=== PATIENT | male | born 1990 | race Caucasian/White ===

== ENCOUNTER 2020-02-25 18:36 | Emergency (ER) | payer SELFPAY ==
[~2020-02-25] VITALS: Ht 182.9 cm; Wt 74.1 kg
--- NOTE | 2020-02-25 19:53 | NUR ---
CALLED FOR ROOM, NO ANSWER.
--- NOTE | 2020-02-25 19:55 | NUR ---
PT FOUND, TO ROOM 20 AT THIS TIME.
--- NOTE | 2020-02-25 20:36 | NUR ---
PT C/O URINATING BLOOD INTERMITTENT X 2 WEEKS, "USUALLY IN THE MORNING". DENIES PAIN, BURNING, ITCHING, DYSURIA. SEXUALLY ACTIVE, PROTECTED. DENIES STD, TRAUMA.
[2020-02-25 20:39] VITALS: BP 140/96
--- NOTE | 2020-02-25 20:40 | NUR ---
PT AMBULATORY TO [facility] W/OUT INCIDENT; GAIT STEADY.
--- NOTE | 2020-02-25 20:59 | NUR ---
PT NOT IN ROOM; PERSONAL BELONGINGS NOT IN ROOM. URINE SPECIMEN ON COUNTER.
[2020-02-25 21:34] LABS: MICROSCOPIC INDICATED
--- NOTE | 2020-02-25 22:09 | NUR ---
PT CALLED PER DR YU, AWARE THAT THERE IS RX HERE AND TO COME PICK IT UP.
== END 2020-02-25 21:10 | disposition left against medical advice (07) ==
LOC: ED 20:23
DX: N30.00 Acute cystitis without hematuria (principal); R31.9 Hematuria, unspecified; F17.200 Nicotine dependence, unspecified, uncomplicated
CPT/HCPCS: 81001; 87086; 99283

== ENCOUNTER 2020-03-03 13:03 | Emergency (ER) | payer SELFPAY ==
[~2020-03-03] VITALS: Ht 198.1 cm; Wt 79.8 kg
--- NOTE | 2020-03-03 14:20 | NUR ---
PATIENT WALKED BACK FROM TRIAGE WITH CHIEF C/O BLOOD IN URINE X1 WEEK. PATIENT REPORTS PAINFUL URINATION X2 DAYS, PATIENT REPORTS HAVING CHILLS. PATIENT A&OX4, NO SIGNS OF ACUTE DISTRESS.
[2020-03-03 14:22] LABS: MEAN CORPUSCULAR HEMOGLOBIN 34.8 pg (27.5-34.5); MEAN CORPUSCULAR HGB CONC 33.6 g/dL (33.2-36.2); MEAN CORPUSCULAR VOLUME 103.5 fL (81-97); MEAN PLATELET VOLUME 6.7 fL (7.4-10.4); PLATELET COUNT 268 x10^3/uL (130-400); RED BLOOD COUNT 4.69 x10^6/uL (4.38-5.82); RED CELL DISTRIBUTION WIDTH 12.2 % (9.4-14.8)
--- NOTE | 2020-03-03 14:27 | NUR ---
EDUCATED PATIENT ON NEED FOR URINE SAMPLE.
[2020-03-03 14:29] LABS: ALANINE AMINOTRANSFERASE 18 U/L (12-78); ALBUMIN 3.7 g/dL (3.4-5.0); ANION GAP 5 mmol/L (5-15); CALCIUM 9.2 mg/dL (8.5-10.1); CHLORIDE 105 mmol/L (98-107); CREATININE 0.99 mg/dL (0.7-1.3)
[2020-03-03 14:31] LABS: ALKALINE PHOSPHATASE 82 U/L (45-117); BILIRUBIN,TOTAL 0.4 mg/dL (0.2-1.0); TOTAL PROTEIN 7.5 g/dL (6.4-8.2)
--- NOTE | 2020-03-03 14:37 | NUR ---
URINE COLLECTED AND SENT TO LAB.
[2020-03-03 14:44] LABS: MD YES
[2020-03-03 14:47] LABS: BAND#(MANUAL) 1.67 x10^3/uL; BANDS%(MANUAL) 7 % (0-7); LYMPHS% (MANUAL) 8 % (22-44); MONOS#(MANUAL) 1.43 x10^3/uL (0.3-2.7); MONOS% (MANUAL) 6 % (2-9); SEGS% (MANUAL) 79 % (42-75)
[2020-03-03 14:48] LABS: MICROSCOPIC INDICATED
[2020-03-03 14:49] LABS: <PLATELET ESTIMATE> ADEQUATE; <PLT MORPHOLOGY> NORMAL PLT MORPH; OVALOCYTES 1+; PMNS WITH VACUOLES 1+
[2020-03-03] MEDS ORDERED: CEFTRIAXONE PMX 1GM/50ML 50 ML IVPB ONE (15:00)
[2020-03-03] MEDS ORDERED: SODIUM CHLORIDE 0.9% 1,000ML IVBOLUS ONE (15:00)
[2020-03-03] MEDS ORDERED: ONDANSETRON 2MG/ML, 2ML ONE (15:15)
[2020-03-03] MEDS ORDERED: CEFTRIAXONE PMX 1GM/50ML 50 ML ONE (15:15)
[2020-03-03] MEDS ORDERED: MORPHINE SULFATE 4 MG/ML, 1ML ONE (15:16)
[2020-03-03] MEDS ORDERED: ONDANSETRON 2MG/ML, 2ML IVPush ONE (15:30)
[2020-03-03] MEDS ORDERED: MORPHINE SULFATE 4 MG/ML, 1ML IVPush PRN (15:30)
--- NOTE | 2020-03-03 15:34 | NUR ---
PIV STARTED AND SECOND SET OF BLOOD CULTURES DRAWN. PT MEDICATED PER EMAR. PT RESTING WITH NO COMPLAINTS AND IS ON CONTINUOUS SPO2 MONITORING.
[2020-03-03 16:28] VITALS: BP 106/60
--- NOTE | 2020-03-03 16:29 | NUR ---
Patient given discharge instructions and prescription and they have confirmed that they understand the instructions, no questions asked. All patient belongings gathered by patient. Patient ambulatory with steady gait to discharge desk.
== END 2020-03-03 16:30 | disposition home or self-care (01) ==
LOC: ED 13:32
DX: N30.00 Acute cystitis without hematuria (principal); R30.0 Dysuria; M79.10 Myalgia, unspecified site; F17.200 Nicotine dependence, unspecified, uncomplicated
CPT/HCPCS: 36415; 80053; 81001; 83605; 84145; 85025; 87040; 87086; 96365; 96375; 99284; J0696; J2270; J2405; J7030; 87077

== ENCOUNTER 2020-04-24 20:20 | Emergency (ER) | payer SELFPAY ==
[~2020-04-24] VITALS: Ht 198.1 cm; Wt 78.8 kg
[2020-04-24 20:26] VITALS: BP 117/75
--- NOTE | 2020-04-24 20:42 | NUR ---
cc of sore throat, fever, body aches, loss of taste x 2 days. denies exposure to anyone with covid-19. 97% ra. 7/10 pain for generalized pain "all over".
[2020-04-24 21:32] LABS: RAPID INFLUENZA A Negative (Negative); RAPID INFLUENZA B Negative (Negative)
== END 2020-04-24 22:34 | disposition home or self-care (01) ==
LOC: ED 20:39
DX: J02.8 Acute pharyngitis due to other specified organisms (principal); Z20.828 Contact with and (suspected) exposure to other viral communicable diseases; B34.9 Viral infection, unspecified; F17.210 Nicotine dependence, cigarettes, uncomplicated
CPT/HCPCS: 87081; 87400; 87635; 87880; 99283; 99406